=== PATIENT | female | born 1985 | race Caucasian/White ===

== ENCOUNTER 2016-06-14 11:48 | Emergency (ER) | payer BC, OTHER ==
[~2016-06-14 11:48] MED LIST: HYDR-3580 PO; PRENCAP10 PO
[2016-06-14 12:30] VITALS: BP 120/74; PULSE 113
[2016-06-14 12:44] VITALS: RESP 20; TEMP 98.3
--- NOTE | 2016-06-14 12:50 | PD ---
HPI Travel History International Travel<30 Days: No Contact w/Intl Traveler<30Days: No Known Affected Area: No History of Present Illness HPI This patient is a 30-year-old 2 para 0100 EDC is July 03, 2016 but is scheduled for a repeat on June 30, 2016 she presents with chief complaint of possible rupture of membranes this morning no contractions the baby is active Care with Dr. Mosqueda courses been unremarkable First baby had trisomy 18 at 8 months no genetic testing with this baby Denies urgency frequency or dysuria History Past Medical History Narrative Medical No known drug allergies no major medical problems Obstetric History Obstetric History October 08, 2011 female trisomy 18 section done Past Surgical History Narrative Surgical 1 Family History Narrative Family History Breast and ovarian cancer Social History Alcohol Use: No Tobacco Use: No Substance Abuse: No Allergies-Medications (Allergen,Severity, Reaction): Coded Allergies: No Known Allergies (Unverified , 10/07/11) Home Meds Reported Medications Hydrocodone/Acetaminophen 7.5 mg/325 mg 7.5 Mg/325 Mg Tab1 Tab PO Q4HPRN #30 as needed for pain 10/11/11 Vit W/ Ferrous Fumara ( Multi +Dha)+ Cap1 Po 10/07/11 Review of Systems Genitourinary: Other (possible rupture of membranes) Physical Exam Narrative GENERAL: Well-nourished, well-developed patient. Alert oriented 3 and cooperative in no acute distress CARDIOVASCULAR: Regular rate and rhythm without murmurs, gallops, or rubs. RESPIRATORY: Breath sounds equal bilaterally. No accessory muscle use. ABDOMEN/GI: Gravid consistent with stated gestational age of 37 weeks soft nontender no palpable contractions Gravid to [-] weeks size 37 Fundal Height: [-] GENITOURINARY: Speculum exam no fluid no blood in vagina no fluid with Valsalva External Genitalia: intact and normal in appearance BUS glands: [-] Cervix: [-] Thick closed posterior Dilatation: [-] Closed Effacement: [-] Station: [-] High Presentation: [-] Membranes: [intact amnisure is negative Uterine Contractions: [-]0 FHT's: Category: [-]1 Baseline: [-] 140 Reactive: [-] + Variability: [-] Moderate Decels: [-] 0 EXTREMITIES: No cyanosis or edema. Trace edema of her feet and ankles NEUROLOGICAL: Awake and alert. Motor and sensory grossly within normal limits. Five out of 5 muscle strength in all muscle groups. Normal speech. Data Data Vital Signs Reviewed: Yes (blood pressure 120/74 pulse is 113 she is afebrile) [facility] Medical Record Reviewed: No (no records available) Interpretation(s) 30-year-old G3 to P0 at 37 weeks 2 days No clinical evidence of ruptured membranes Not in labor Previous History of trisomy 18 baby Narrative Course / MDM Urinalysis is negative Category 1 tracing We'll discharge patient home By mouth fluid hydration kick counts Keep her next appointment with Dr. Mosqueda Plan External monitoring By mouth fluid hydration Urinalysis to rule out UTI If UA is negative will discharge home to follow-up with Dr. Mosqueda kick count And continue present management Physician Communication Case discussed with she agrees with evaluation and management Diagnosis Diagnosis: Primary Impression: 37 weeks gestation of Additional Impressions: Encounter for suspected problem with amniotic cavity or membrane, ruled out Previous section Disposition: 01 DISCHARGE HOME Condition: Stable Krystle Bee MD Jun 14, 2016 12:50
[2016-06-14 13:22] LABS: BACTERIA, URINE FEW /hpf; BLOOD, URINE NEG (NEG); GLUCOSE,URINE NEG (NEG); KETONE, URINE 10 mg/dL (NEG); NITRITE,URINE NEG (NEG); SQUAMOUS EPITHELIAL CELL URINE 3 /hpf (0-5); TRANSITIONAL EPI CELLS, URINE <1 /hpf; URINE COLOR YELLOW (YELLW/STRAW)
[2016-06-14 13:23] LABS: COMMENT (UR) CULT NOT INDICATED; CULTURE IF INDICATED CULT NOT INDICATED
== END 2016-06-14 13:56 | disposition home or self-care (01) ==
LOC: HOBED 11:48
DX: O26.893 Other specified pregnancy related conditions, third trimester (principal); Z3A.37 37 weeks gestation of pregnancy
CPT/HCPCS: 59025; 81001; 84112

== ENCOUNTER 2016-06-20 10:48 | Inpatient (IN) | payer OTHER ==
[~2016-06-20] VITALS: Ht 157.5 cm; Wt 86.6 kg
--- NOTE | 2016-06-29 12:38 | MH ---
cc: ESDRAS BENNETT M.D. DATE OF ADMISSION: 06/30/2016 DATE OF : 1985 CHIEF COMPLAINT The patient at term for elective repeat section, history of previous section. PATIENT HISTORY The patient is a 30-year-old female 2, para 1 the patient's estimated date confinement was established at July 03, 2016 by early first trimester ultrasound. November 08, 2015 baby measured 6 weeks. Subsequent ultrasound in November confirms estimated date confinement. The patient had a previous history of section due to cephalopelvic disproportion and elected for repeat section. OBSTETRICAL HISTORY: The patient's obstetrical history the patient a previous in 2011 complicated by trisomy 18. Baby is now . The patient's group B strep status is negative. Her blood type is O+. ALLERGIES The patient has no known drug allergies. MEDICATIONS current medications include Vitamins only. PAST MEDICAL HISTORY The patient denies any systemic or chronic disease states. PAST SURGICAL HISTORY She had a LEEP biopsy in 2014 section in 2011. SOCIAL HISTORY: The patient is a former smoker. Denies use of alcohol or illicit substances. She is . FAMILY HISTORY Noncontributory. PHYSICAL EXAMINATION IN GENERAL: The patient is well-appearing well-nourished female in no acute distress. VITAL SIGNS: Stable. Blood pressures 118/72. She weighs 191 pounds. HEAD, EYES, EARS, NOSE, AND THROAT: Shows no adenopathy or thyroid thyromegaly. LUNGS: Lungs were clear in all mcintosh. CARDIOVASCULAR SYSTEM: Cardiac is regular rhythm without murmur, rub or gallop. ABDOMEN: Abdomen is gravid, soft, nontender. Fundal height is about 40 weeks in size. heart tones were documented in the 140's and regular. GYNECOLOGY: Pelvic exams deferred. The patient had no signs of labor or active vaginal bleeding or leakage of fluid. EXTREMITIES: The extremities are symmetrical, full range of motion. No cyanosis, clubbing or edema. NEUROLOGIC EXAMINATION: Exam is intact, nonfocal. ASSESSMENT/PLAN: The patient is at 39 weeks and 4 days, for elective repeat section at term, previous history of trisomy 18 genetic evaluation of this baby is normal. MD SANDRA Whitaker/ruben /12:16 PM /12:28 PM
[2016-06-30] VITALS (13 sets, daily range): BP systolic 97–140; BP diastolic 49–88; PULSE 59–105; RESP 18–20; TEMP 97.3–98.3; O2SAT 91–96
[2016-06-30] MEDS ORDERED: ceFAZolin 2 GM PREMIX 50 ML IV SCH (08:00)
[2016-06-30] MEDS ORDERED: LACTATED RINGER'S 1000 ML IV ONE (08:00)
[2016-06-30] MEDS ORDERED: CITRIC ACID-SODIUM CITRATE LIQ 30 ML UDC PO SCH (08:00)
[2016-06-30 08:10] LABS: AUTOMATED NEUTROPHIL # 5.7 TH/MM3 (1.8-7.7); BASOPHIL % 0.4 % (0.0-2.0); EOSINOPHIL # 0.2 TH/MM3 (0-0.4); EOSINOPHIL % 2.9 % (0.0-4.0); HEMATOCRIT 40.2 % (35.0-46.0); HEMO FLAGS DIFF FINAL; LYMPHOCYTE # 1.7 TH/MM3 (1.0-4.8); MEAN CELL VOLUME 89.8 FL (80.0-100.0); MEAN CORPUSCULAR HEMOGLOBIN 30.5 PG (27.0-34.0); MONO % 9.3 % (0.0-8.0); NEUT % 67.4 % (16.0-70.0); PLATELET COUNT 184 TH/MM3 (150-450); RED BLOOD COUNT 4.48 MIL/MM3 (4.00-5.30); RED CELL DISTRIBUTION WIDTH 14.9 % (11.6-17.2); WHITE BLOOD COUNT 8.5 TH/MM3 (4.0-11.0)
[2016-06-30] MEDS: LACTATED RINGER'S 1000 ML IV SCH ×2 (08:30→17:28)
[2016-06-30] MEDS ORDERED: OXYTOCIN 10 UNIT/ML AMP ONE (08:30)
[2016-06-30 08:58] LABS: BACTERIA, URINE MANY /hpf; BLOOD, URINE TRACE (NEG); COMMENT (UR) CULTURE INDICATED; CULTURE IF INDICATED CULTURE INDICATED; GLUCOSE,URINE NEG (NEG); KETONE, URINE 40 mg/dL (NEG); NITRITE,URINE NEG (NEG); RENAL EPITHELIAL CELLS <1 /hpf; SQUAMOUS EPITHELIAL CELL URINE 16 /hpf (0-5); TRANSITIONAL EPI CELLS, URINE <1 /hpf; URINE COLOR LIGHT-YELLOW (YELLW/STRAW)
--- NOTE | 2016-06-30 09:56 | PD.OB.DELI ---
Procedure Note Section Procedure Performed by Jayden Mosqueda Procedure: Repeat Low Transverse Sec Indication for delivery: Desired elective repeat Informed consent obtained: For anesthesia, For procedure Confirmed correct: Patient, Procedure, Site, Time-out taken Anesthesia: Spinal Medication prior to procedure: As documented in eMAR Monitoring during procedure: Blood pressure monitoring, principal strategist, doppler, Pulse oximetry Urinary catheter: Inserted using sterile technique, To dependent drainage Sterile preparation: Duraprep Position: Supine with wedge to right side, Supine with safety belt applied Operative Features Skin Incision: Pfannenstiel Uterine Incision: Low transverse w/knife / scissors Membranes Ruptured: Artificially, Appearance of fluid (lite mec.) Delivery of : Uneventful : Female One Minute : 8 Five Minute : 8 Weight: 9# 6oz Status of : Viable Medications: Antibiotics, Oxytocin Estimated blood loss: 600 Procedure tolerated: Well Maternal Condition: Stable Jayden Mosqueda MD Jun 30, 2016 09:56
[2016-06-30] MEDS ORDERED: OXYTOCIN 30 UNITS-500ML PREMIX 500 ML IV ONE (10:00)
[2016-06-30] MEDS ORDERED: oxyCODONE/ACETAMINOPHEN 5 MG/325 MG TAB PO PRN (10:00)
[2016-06-30] MEDS ORDERED: MORPHINE SULFATE PF 5 MG/10 ML VIAL ONE (10:00)
[2016-06-30] MEDS ORDERED: ONDANSETRON HCL 4 MG/2 ML VIAL IV PUSH PRN (10:00)
[2016-06-30] MEDS ORDERED: ONDANSETRON HCL 4 MG/2 ML VIAL ONE (10:00)
[2016-06-30] MEDS ORDERED: SODIUM CHLORIDE 0.9% FLUSH 10 ML FLUSH IV FLUSH PRN (10:00)
[2016-06-30] MEDS ORDERED: SIMETHICONE 80 MG CHEWABLE TAB PO PRN (10:00)
[2016-06-30] MEDS ORDERED: ACETAMINOPHEN 1000 MG/100 ML VIAL IV ONE ×2 (10:00→10:01)
[2016-06-30] MEDS ORDERED: METOCLOPRAMIDE HCL 10 MG/2 ML VIAL IV ONE (10:29)
[2016-06-30] MEDS ORDERED: DEXAMETHASONE SOD PHOS 4 MG/ML VIAL IV ONE (10:29)
[2016-06-30] MEDS ORDERED: LACTATED RINGER'S 1,000 ML BAG IV ONE (10:29)
[2016-06-30] MEDS ORDERED: diphenhydrAMINE HCL 50 MG/ML VIAL ONE (11:10)
[2016-06-30] MEDS ORDERED: EPIDURAL-DIPHENHYDRAMINE HCL 50 MG/ML VIAL IV PUSH PRN (12:00)
[2016-06-30] MEDS ORDERED: EPIDURAL-DIPHENHYDRAMINE HCL 50 MG CAP PO PRN (12:00)
[2016-06-30] MEDS ORDERED: EPIDURAL-NALOXONE HCL 0.4 MG/ML AMP IV PRN (12:00)
[2016-06-30] MEDS ORDERED: EPIDURAL-NO SYSTEMIC NARCOTICS PRN (12:00)
[2016-06-30] MEDS ORDERED: EPIDURAL-DO NOT ADMINISTER ANTICOAGULANTS PRN (12:00)
[2016-06-30] MEDS ORDERED: LACTATED RINGER'S 1000 ML INJ 1,000 ML IV SCH (14:51)
[2016-06-30] MEDS: BETAMETHASONE DIPROPIONATE 0.05% CREAM 15 GM TOPICAL SCH ×2 (17:28→20:22)
[2016-06-30] MEDS ORDERED: OXYTOCIN 30 UNITS-500ML PREMIX 500 ML IV PRN (20:00)
[2016-06-30] MEDS: SODIUM CHLORIDE 0.9% FLUSH 10 ML FLUSH IV FLUSH SCH (21:00)
--- NOTE | 2016-06-30 23:10 | MP ---
cc: ESDRAS BENNETT DATE OF SURGERY 06/30/16 PREOPERATIVE DIAGNOSIS Term intrauterine , history of previous section for elective repeat section. PROCEDURE Repeat low transverse section, delivery of viable female infant. POSTOPERATIVE DIAGNOSIS Term intrauterine , history of previous section for elective repeat section. SURGEON Chapito Bennett MD ANESTHESIA Spinal ESTIMATED BLOOD LOSS 600 mL. DRAINS Benjamin to gravity OPERATIVE FINDINGS Female infant delivered left occiput transverse, light meconium-stained fluid. Three-vessel cord, intact placenta. Apgars were 8 at 1-minute, 8 at 5, baby weighed 9 pounds 6 ounces INDICATIONS FOR PROCEDURE Previous section x1 elected for repeat at term. PROCEDURE IN DETAIL The patient was taken to the operating room in stable condition, received Ancef 2 grams prophylactically. She underwent spinal anesthetic without complication. She was prepped and draped. Benjamin was inserted by sterile technique. Sequentials were placed on lower extremities for VTE prophylaxis. She had excellent pain control with her spinal. She was prepped and draped and a time-out was conducted, agreed by all present in the room. Procedure initiated with using the previous Pfannenstiel scar which was slightly elliptical. A #10 blade was used carrying the incision through the skin through the subcutaneous layer identifying the fascia and then scoring the fascia in the midline extending it sharply in a lateral direction allowing dissection of the rectus muscle from the fascia. This identified the midline of the rectus muscle. Peritoneum was identified easily and opened sharply without difficulty. The incision was extended. Bladder blade was placed over the pubic symphysis. Transverse incision was made in lower uterine segment with lightly green colored meconium stained fluid. No particulate or no densities noted. was oropharyngeal suctioned on the operative field and then delivered in total with good tone and cry. Cord was doubly clamped in an expedited fashion and the was taken to isolette by the nurse present. Cord blood was obtained for typing. Placenta was removed intact with trailing membranes. Uterus was explored. There was no retained tissue. Uterus was grey nicely. The uterus was closed with a double layer. First layer was a running locking suture of 0 Monocryl followed by a second imbricating suture of 0 Monocryl. Pelvis was irrigated and examined. No active bleeding, no hematoma. Both adnexa were examined to be normal. Full count was made and correct. The peritoneum was then closed with running suture of 2-0 Monocryl followed by reapproximating the muscle in midline with an interrupted mattress suture of 2-0 Monocryl. 0 Vicryl was used to close the fascia in a simple running fashion with good result. Subcutaneous layer was irrigated. Any active bleeding was cauterized. Hemostasis was confirmed and the space was closed with a running suture of 2-0 Monocryl, reapproximating the space. Skin edges were reapproximated using a stapler and then a dressing was applied. The final count was correct. The patient was stable. Infant was doing well in the nursery. MD SANDRA Whitaker/ /10:00 AM /10:55 PM
[2016-07-01] VITALS: BP 99/60; PULSE 81; RESP 16; TEMP 97.8
[2016-07-01] MEDS: IBUPROFEN 600 MG TAB PO PRN ×3 (01:40→17:40)
[2016-07-01 04:00] VITALS: BP 101/67; PULSE 79; RESP 16; TEMP 98
[2016-07-01 05:10] LABS: AUTOMATED NEUTROPHIL # 8.9 TH/MM3 (1.8-7.7); BASOPHIL # 0.1 TH/MM3 (0-0.2); BASOPHIL % 0.5 % (0.0-2.0); EOSINOPHIL # 0.3 TH/MM3 (0-0.4); EOSINOPHIL % 2.2 % (0.0-4.0); HEMATOCRIT 35.1 % (35.0-46.0); HEMO FLAGS DIFF FINAL; LYMPHOCYTE # 2.6 TH/MM3 (1.0-4.8); MEAN CELL VOLUME 90.7 FL (80.0-100.0); MEAN CORPUSCULAR HEMOGLOBIN 29.3 PG (27.0-34.0); MEAN CORPUSCULAR HGB CONC 32.3 % (32.0-36.0); MONO % 8.8 % (0.0-8.0); NEUT % 68.5 % (16.0-70.0); PLATELET COUNT 177 TH/MM3 (150-450); RED BLOOD COUNT 3.87 MIL/MM3 (4.00-5.30); RED CELL DISTRIBUTION WIDTH 14.4 % (11.6-17.2)
[2016-07-01 08:00] VITALS: BP 102/60; PULSE 82; RESP 16; TEMP 98.6
--- NOTE | 2016-07-01 11:00 | HHI.OB ---
Subjective Post Operative Day: 1 Remarks POD#1, Stable; PUPPS continues to be active Objective Vitals/I&O Vital Signs Date Time Temp Pulse Resp B/P Pulse Ox O2 Delivery O2 Flow Rate FiO2 07/01/16 08:00 82 16 102/60 07/01/16 08:00 98.6 07/01/16 04:00 79 16 101/67 07/01/16 04:00 98.0 07/01/16 02:40 16 07/01/16 00:00 97.8 81 16 99/60 06/30/16 20:00 64 18 123/69 06/30/16 20:00 97.3 06/30/16 17:55 98.1 06/30/16 16:30 98.2 06/30/16 16:30 76 18 127/72 06/30/16 14:09 98.3 78 20 124/49 06/30/16 12:05 97.8 59 20 110/69 06/30/16 11:10 97.6 06/30/16 11:10 60 18 115/66 95 Result Diagram: 07/01/16 0435 Objective Remarks GENERAL: Well-nourished, well-developed patient. CARDIOVASCULAR: Regular rate and rhythm without murmurs, gallops, or rubs. RESPIRATORY: Breath sounds equal bilaterally. No accessory muscle use. ABDOMEN/GI: Abdomen soft, non-tender, bowel sounds present. Incision: Clean, dry and intact. Fundus: Firm, non-tender at umbilicus. GENITOURINARY: Light to moderate bleeding. EXTREMITIES: No cyanosis or edema, non-tender, without signs of DVT. Medications and IVs Current Medications Medications (Trade) Dose Ordered Sig/Christen Route Start Time Stop Time Status Last Admin (Lr 1000 ml Inj) 1,000 ml @ 150 mls/hr Q6H40M IV 06/30/16 08:30 06/30/16 17:28 (NS Flush) 2 ml BID IV FLUSH 06/30/16 10:00 (NS Flush) 2 ml UNSCH PRN IV FLUSH 06/30/16 10:00 (Mylicon Chew) 80 mg QID PRN PO 06/30/16 10:00 (Motrin) 600 mg Q6H PRN PO 06/30/16 10:00 07/01/16 01:40 (Percocet 5-325 Mg) 1 tab Q4H PRN PO 06/30/16 10:00 (Percocet 5-325 Mg) 2 tab Q4H PRN PO 06/30/16 10:00 (Trista-Colace) 2 tab Q12H PRN PO 06/30/16 10:00 (M-M-R Ii Inj) 0.5 ml ONCE ONCE SQ 07/01/16 16:00 07/01/16 16:01 (Boostrix Inj) 0.5 ml ONCE ONCE IM 07/01/16 16:00 07/01/16 16:01 (Zofran Inj) 4 mg Q6H PRN IV PUSH 06/30/16 10:00 (Diprosone 0.05% Cream) 1 applic BID TOPICAL 06/30/16 11:00 06/30/16 20:22 Miscellaneous Information NO SYSTEMIC NARCOTICS TO BE GIVEN FO... UNSCH PRN .XX 06/30/16 12:00 07/01/16 11:59 (Narcan Inj) 0.4 mg UNSCH PRN IV 06/30/16 12:00 07/01/16 11:59 (Benadryl Inj) 25 mg Q6H PRN IV PUSH 06/30/16 12:00 07/01/16 11:59 (Benadryl) 50 mg Q6H PRN PO 06/30/16 12:00 07/01/16 11:59 07/01/16 01:40 Miscellaneous Information ALL NURSING DEPARTMENTS UNSCH PRN .XX 06/30/16 12:00 07/01/16 11:59 Assessment/Plan Assessment and Plan POD#1, s/p repeat CD, continue topical betamethasone, Discharge Planning Anticipate POD 2-3 Jayden Mosqueda MD Jul 01, 2016 11:00
--- NOTE | 2016-07-01 11:01 | HHI.DS ---
Admission Date Jun 30, 2016 at 07:22 Admitting Diagnosis Diagnosis: : Repeat : Female Pt Condition on Discharge: Good Discharge Disposition: Discharge Home Discharge Instructions Diet Instructions: As Tolerated, No Restrictions Activities You Can Perform: Shower Only-No Bath Activities to Avoid: Prolonged Standing, Strenuous Activity, Driving, Sexual Activity Jayden Mosqueda MD Jul 01, 2016 11:01
[2016-07-01] MEDS ORDERED: BETA0.052 TOPICAL (11:04)
[2016-07-01] MEDS: DOCUSATE SODIUM 50 MG/SENNA 8.6 MG TAB PO PRN (11:09)
[2016-07-01] MEDS ORDERED: DIPHTH/TETANUS/ACEL PERTUSSIS (BOOSTER) 0.5 ML VIAL/PFS IM ONE (16:00)
[2016-07-01] MEDS ORDERED: MEASLES, MUMPS, RUBELLA VACCINE 0.5 ML VIAL SQ ONE (16:00)
[2016-07-01] MEDS: oxyCODONE/ACETAMINOPHEN 5 MG/325 MG TAB PO PRN ×2 (17:39→22:07)
[2016-07-01 20:30] VITALS: BP 116/80; PULSE 78; RESP 18; TEMP 97.9; O2SAT 97
[2016-07-01] MEDS: BETAMETHASONE DIPROPIONATE 0.05% CREAM 15 GM TOPICAL SCH (22:09)
[2016-07-02] MEDS: DOCUSATE SODIUM 50 MG/SENNA 8.6 MG TAB PO PRN (00:45)
[2016-07-02] MEDS: IBUPROFEN 600 MG TAB PO PRN ×3 (00:45→13:47)
[2016-07-02] MEDS: LACTATED RINGER'S 1000 ML IV SCH (07:10)
--- NOTE | 2016-07-02 07:35 | HHI.OB ---
Subjective Post Operative Day: 2 Remarks doing well, desires to go home today Objective Vitals/I&O Vital Signs Date Time Temp Pulse Resp B/P Pulse Ox O2 Delivery O2 Flow Rate FiO2 07/01/16 20:30 78 116/80 07/01/16 20:30 97.9 18 97 07/01/16 08:00 82 16 102/60 07/01/16 08:00 98.6 Result Diagram: 07/01/16 0435 Objective Remarks GENERAL: Well-nourished, well-developed patient. CARDIOVASCULAR: Regular rate and rhythm without murmurs, gallops, or rubs. RESPIRATORY: Breath sounds equal bilaterally. No accessory muscle use. ABDOMEN/GI: Abdomen soft, non-tender, bowel sounds present. Incision: Clean, dry and intact.[place] in place Fundus: Firm, non-tender at umbilicus. GENITOURINARY: Light to moderate bleeding. EXTREMITIES: No cyanosis or edema, non-tender, without signs of DVT. Medications and IVs Current Medications Medications (Trade) Dose Ordered Sig/Chrisetn Route Start Time Stop Time Status Last Admin (Lr 1000 ml Inj) 1,000 ml @ 150 mls/hr Q6H40M IV 06/30/16 08:30 06/30/16 17:28 (NS Flush) 2 ml BID IV FLUSH 06/30/16 10:00 (NS Flush) 2 ml UNSCH PRN IV FLUSH 06/30/16 10:00 (Mylicon Chew) 80 mg QID PRN PO 06/30/16 10:00 (Motrin) 600 mg Q6H PRN PO 06/30/16 10:00 07/02/16 00:45 (Percocet 5-325 Mg) 1 tab Q4H PRN PO 06/30/16 10:00 07/01/16 22:07 (Percocet 5-325 Mg) 2 tab Q4H PRN PO 06/30/16 10:00 (Trista-Colace) 2 tab Q12H PRN PO 06/30/16 10:00 07/02/16 00:45 (Zofran Inj) 4 mg Q6H PRN IV PUSH 06/30/16 10:00 (Diprosone 0.05% Cream) 1 applic BID TOPICAL 06/30/16 11:00 07/01/16 22:09 Assessment/Plan Assessment and Plan POD#2, s/p repeat CD, continue topical betamethasonefor pupps, Discharge Planning today, f/u in 2-3 d for staple removal Alesia Haque MD Jul 02, 2016 07:35
[2016-07-02 07:56] VITALS: BP 114/65; PULSE 70; RESP 16; TEMP 98
[2016-07-02] MEDS: BETAMETHASONE DIPROPIONATE 0.05% CREAM 15 GM TOPICAL SCH (08:25)
[2016-07-02] MEDS: SODIUM CHLORIDE 0.9% FLUSH 10 ML FLUSH IV FLUSH SCH (08:45)
== END 2016-07-02 14:45 | disposition home or self-care (01) | DRG 766 ==
LOC: H2EB 06-30 07:22 → H1EA 06-30 11:34
PROVIDERS: ADMIT Obstetrics & Gynecology; ATTEND Obstetrics & Gynecology
PROC: 10D00Z1 Extraction of Products of Conception, Low, Open Approach (ICD-10-PCS; principal; 2016-06-30)
DX: O34.211 Maternal care for low transverse scar from previous cesarean delivery (principal); O26.86 Pruritic urticarial papules and plaques of pregnancy (PUPPP); O32.2XX0 Maternal care for transverse and oblique lie, not applicable or unspecified; O77.0 Labor and delivery complicated by meconium in amniotic fluid; Z87.891 Personal history of nicotine dependence; Z37.0 Single live birth; Z3A.39 39 weeks gestation of pregnancy
CPT/HCPCS: 59025; 81001; 85025; 86850; 86900; 86901; 87086; J0131; J0690; J1100; J1200; J2274; J2405; J2590; J2765; J7120; Q0163